=== PATIENT | female | born 2000 | race Caucasian/White ===

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

== ENCOUNTER → 2021-07-25 18:53 | Observation (INO) | END | disposition home or self-care (01) | LOC: 1NENULAB | PROVIDERS: ADMIT Advanced Practice Midwife; ATTEND Advanced Practice Midwife ==

== ENCOUNTER 2021-08-23 23:54 | Inpatient (IN) ==
[~2021-08-23 23:54] MED LIST changes: +*HR* Nalbuphine 10 MG/ML AMPUL IV PRN; +*HR* Nalbuphine 10 MG/ML AMPUL ONE; +Azithromycin 500 MG in 0.9 % Sodium Chloride 250 ML IVPB PRN; -EPHEDrine 50 MG/ML VIAL IVP PRN; -Epidural Premix (fent/bupiv) 110 ML EP SCH; +Famotidine 20 MG/2 ML VIAL IVP PRN; +Metoclopramide 10 MG/2 ML VIAL IVP PRN; +Naloxone 0.4 MG/ML INJ IVP PRN; +Ondansetron 4 MG/2 ML VIAL IVP PRN; +Ringers Solution, Lactated 1,000 ML IVC SCH; +Ringers Solution, Lactated 2,000 ML ONE; -hydrOXYzine pamoate 25 MG CAPSULE PO ONE
[2021-08-24 00:30] LABS: Basophils % 0.3 %; Eosinophils % 0.3 %; Hematocrit 35.3 % (35.3-44.9); Hemoglobin 11.7 g/dL (11.5-15.4); Immature Granulocytes % 0.5 % (0-4); Lymphocytes # 1.2 K/mcL (0.6-4.6); Lymphocytes % 15.4 %; Mean Corpuscular HGB Conc 33.1 g/dL (31.6-35.5); Mean Corpuscular Hemoglobin 29.1 pg (28.0-33.3); Mean Corpuscular Volume 87.8 fL (83.0-100.0); Mean Platelet Volume 10.4 fL (9.4-12.4); Monocytes # 0.6 K/mcL (0.0-1.3); Monocytes % 8.1 %; Neutrophils # 5.8 K/mcL (1.6-8.9); Platelet Count 250 K/mcL (140-400); Red Blood Count 4.02 M/mcL (3.82-4.97); Red Cell Distribution Width 11.9 % (11.5-14.5); Segmented Neutrophils % 75.4 %; White Blood Count 7.7 K/mcL (4.3-11.1)
[2021-08-24] MEDS ORDERED: *HR* FentaNYL (PF) 100 MCG/2 ML VIAL EP ONE (00:48)
[2021-08-24] MEDS ORDERED: EPHEDrine 50 MG/ML VIAL IVP PRN (00:48)
[2021-08-24] MEDS ORDERED: Ropivacaine/PF 0.2% 20 ML VIAL EP ONE (00:48)
[2021-08-24] MEDS ORDERED: Ropivacaine/PF 0.2% 20 ML VIAL ONE (00:52)
[2021-08-24] MEDS ORDERED: *HR* FentaNYL (PF) 100 MCG/2 ML VIAL ONE (00:52)
[2021-08-24] MEDS ORDERED: Epidural Premix (fent/bupiv) 110 ML EP SCH (01:00)
[2021-08-24] MEDS ORDERED: Oxytocin 30 UNIT/503 ML BAG IVC ONE (02:57)
[2021-08-24] MEDS ORDERED: Oxytocin 30 UNIT/503 ML BAG IVC SCH (06:06)
[2021-08-24] MEDS ORDERED: Rho Immune Globulin 1,500 UNIT SYRINGE IM PRN (06:06)
[2021-08-24] MEDS ORDERED: Benzocaine/Menthol 56 GM AEROSOL SPRAY TP PRN (06:06)
[2021-08-24] MEDS ORDERED: Ondansetron ODT 4 MG TAB.RAPDIS SL PRN (06:06)
[2021-08-24] MEDS ORDERED: Lanolin 7 G OINT...G. TP PRN (06:06)
[2021-08-24] MEDS: Acetaminophen 325 MG TABLET PO SCH ×4 (06:42→22:05)
[2021-08-24] MEDS: Ibuprofen 600 MG TABLET PO SCH ×3 (06:43→22:04)
[2021-08-24] MEDS: Prenatal Vit/FA 1 EACH TABLET PO SCH (07:59)
[2021-08-24 11:03] LABS: Amphetamine Screen,Urine Negative ng/mL (Cutoff=1000); Barbiturate Screen,Urine Negative ng/mL (Cutoff=200); Benzodiazepines Screen,Urine Negative ng/mL (Cutoff=200); Cannabinoid Screen,Urine Negative ng/mL (Cutoff = 50); Cocaine Screen,Urine Negative ng/mL (Cutoff= 300); Opiate Screen,Urine Negative ng/mL (Cutoff=300); Phencyclidine Screen,Urine Negative ng/mL (Cutoff=25)
[2021-08-25] MEDS: Acetaminophen 325 MG TABLET PO SCH ×2 (04:21→10:24)
[2021-08-25] MEDS: Ibuprofen 600 MG TABLET PO SCH ×2 (04:22→10:24)
[2021-08-25 07:07] VITALS: BP 93/54; PULSE 69; TEMP 98.3; O2SAT 98
[2021-08-25] MEDS: Prenatal Vit/FA 1 EACH TABLET PO SCH (10:24)
== END 2021-08-25 11:58 | disposition home or self-care (01) | DRG 806 ==
LOC: 1NENULAB → 1NENUOBS 08-24 05:45
PROVIDERS: ADMIT Registered Nurse; ATTEND Registered Nurse